=== PATIENT | male | born 1980 | race Caucasian/White ===

== ENCOUNTER 2018-06-20 13:53 | Emergency (ER) | payer OTHER ==
[2018-06-20] MEDS ORDERED: CHLORHEXIDINE GLUCONATE 4 % 15 ML UD TOP ONE (14:01)
[2018-06-20 14:12] VITALS: TEMP 97.8; O2SAT 98
[2018-06-20] MEDS ORDERED: SULFA/TRIMETH 800/160 (DS) TAB 1 EA TAB PO ONE (14:14)
[2018-06-20] MEDS ORDERED: TETANUS,DIPHTHERIA,PERTUSSIS 1 EA SYG IM ONE (14:14)
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
[2018-06-20] MEDS ORDERED: NEOMYCIN-BACITRACIN-POLYMYXIN 0.9 GM UD TOP ONE (14:20)
[2018-06-20 14:57] VITALS: BP 180/88
== END 2018-06-20 14:40 | disposition home or self-care (01) ==
LOC: ER 13:53
DX: S91.111A Laceration without foreign body of right great toe without damage to nail, initial encounter (principal); Z23 Encounter for immunization; I10 Essential (primary) hypertension; Z88.2 Allergy status to sulfonamides; W29.8XXA Contact with other powered hand tools and household machinery, initial encounter; Y92.9 Unspecified place or not applicable

== ENCOUNTER 2019-07-09 20:12 | Emergency (ER) | payer OTHER ==
[2019-07-09] MEDS ORDERED: SODIUM CHLORIDE 0.9% 1000ML 1,000 ML IVS ONE (20:33)
[2019-07-09] MEDS ORDERED: MORPHINE SULFATE INJ 10 MG/ML VIAL ONE (21:30)
[2019-07-09] MEDS ORDERED: MORPHINE SULFATE INJ 10 MG/ML VIAL IV ONE ×2 (21:31→22:28)
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
[2019-07-09 23:07] VITALS: O2SAT 99
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
[2019-07-09 23:47] VITALS: BP 134/81; TEMP 97.4
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
== END 2019-07-10 00:20 | disposition short-term general hospital (02) ==
LOC: ER 20:12
DX: S32.029A Unspecified fracture of second lumbar vertebra, initial encounter for closed fracture (principal); S32.039A Unspecified fracture of third lumbar vertebra, initial encounter for closed fracture; S32.049A Unspecified fracture of fourth lumbar vertebra, initial encounter for closed fracture; S82.54XA Nondisplaced fracture of medial malleolus of right tibia, initial encounter for closed fracture; R41.3 Other amnesia; S36.892A Contusion of other intra-abdominal organs, initial encounter; S00.03XA Contusion of scalp, initial encounter; Z87.891 Personal history of nicotine dependence; V89.0XXA Person injured in unspecified motor-vehicle accident, nontraffic, initial encounter; Y92.9 Unspecified place or not applicable
CPT/HCPCS: 70450; 71260; 72125; 72128; 72131; 73610; 74177; 80053; 80307; 80320; 81001; 85025; J2270; J7030

== ENCOUNTER → 2019-12-15 | Outpatient (CLI) | payer OTHER | LOC: LAB.O 09:21 | PROVIDERS: ATTEND Internal Medicine Gastroenterology | DX: B18.2 Chronic viral hepatitis C (principal) ==